=== PATIENT | female | born 1980 | race Two or more races ===

== ENCOUNTER 2021-08-21 09:31 | Outpatient (CLI) | payer OTHER | END 2021-08-21 23:59 | disposition home or self-care (01) | LOC: LAB 09:31 | PROVIDERS: ATTEND Obstetrics & Gynecology | DX: Z01.812 Encounter for preprocedural laboratory examination (principal); Z20.822 Contact with and (suspected) exposure to COVID-19 | CPT/HCPCS: C9803; U0003 ==

== ENCOUNTER 2021-08-28 08:15 | Day surgery (SDC) | payer OTHER ==
[2021-08-28] MEDS ORDERED: SILVER NITRATE APPLICATOR 1 EA BOX TP ONE (09:00)
[2021-08-28] MEDS ORDERED: FERRIC SUBSULFATE 8 GM/VIAL VIAL TP ONE (09:00)
[2021-08-28] MEDS ORDERED: SILVER SULFADIAZINE CREAM 25 GM TUBE TP ONE (09:00)
[2021-08-28 09:44] LABS: BASOPHILS % (AUTO) 0.3 % (0.0-2.0); EOSINOPHILS % (AUTO) 1.6 % (0.0-6.0); HEMATOCRIT 34 % (33-45); HEMOGLOBIN 11.1 g/dL (11.5-14.8); LYMPHOCYTES # (AUTO) 1.1 K/uL (0.8-4.8); LYMPHOCYTES % (AUTO) 20.8 % (20.0-44.0); MEAN CORPUSCULAR HGB CONC 33 g/dl (31.0-36.0); MEAN CORPUSCULAR VOLUME 82 fL (82-100); MONOCYTES # (AUTO) 0.4 K/uL (0.1-1.30); MONOCYTES % (AUTO) 6.9 % (2.0-12.0); NEUTROPHILS # (AUTO) 3.6 K/uL (1.8-8.9); NEUTROPHILS % (AUTO) 70.4 % (43.0-81.0); PLATELET COUNT (AUTO) 214 K/uL (150-450); RED BLOOD CELL COUNT(AUTO) 4.11 MIL/uL (4.0-5.2); WHITE BLOOD COUNT (AUTO) 5.1 K/uL (4.3-11.0)
[2021-08-28] MEDS ORDERED: MIDAZOLAM HCL 2 MG/2ML VIAL ONE (09:48)
[2021-08-28] MEDS ORDERED: FENTANYL PF 100MCG/2ML AMPUL ONE (09:48)
[2021-08-28 10:07] LABS: ALBUMIN 3.9 g/dL (3.4-5.0); BILIRUBIN,TOTAL 0.6 mg/dL (0.2-1.0); CREATININE 0.5 mg/dL (0.6-1.3); POTASSIUM 3.9 mmol/L (3.5-5.1); TOTAL PROTEIN, SERUM 7.5 g/dL (6.4-8.2)
[2021-08-28] MEDS ORDERED: LIDOCAINE 1%-EPI 1:100,000 20 ML VIAL ONE (10:17)
== END 2021-08-28 12:55 | disposition home or self-care (01) ==
LOC: DS 08:15
PROVIDERS: ATTEND Obstetrics & Gynecology
DX: N87.9 Dysplasia of cervix uteri, unspecified (principal)
CPT/HCPCS: 36415; 57520; 71045; 80053; 84703; 85025; 85730; 93005 ×2; J0690; J1100; J2250; J2405; J2704; J3010; J3490 ×2